=== PATIENT | male | born 1970 | race African-American/Black ===

== ENCOUNTER 2016-10-28 18:27 | Emergency (ER) ==
[2016-10-28 18:32] VITALS: BP 170/71; TEMP 98.9; BMI 25.7
[2016-10-28] MEDS ORDERED: DUONEB NEB ONE (18:52)
[2016-10-28] MEDS ORDERED: DECADRON 4 MG/ML SDV IM STA (18:55)
[2016-10-28] MEDS ORDERED: DUONEB NEB STA (18:55)
--- NOTE | 2016-10-28 19:31 | ED.PDOC ---
[id number] Complaint: im wheezing--i have asthma and its acting up Time Seen by Physician: 19:30 Mode of Arrival: Walk-In Information Source: Patient, Family Exam Limitations: No limitations Primary Care Provider: BRENDA AYALA Nursing and Triage Documentation Reviewed and Agree: Yes Respiratory Complaint Exam - Asthma Complaint/Exam Onset/Duration: 2 days Symptoms Are: Still present Timing: Intermittent Initial Severity: Mild Current Severity: Mild Character: Reports: Wheezing, Non-productive cough Aggravating: Reports: None Alleviating: Reports: Inhalers, Nebulizers Associated Signs and Symptoms: Reports: SOA. Denies: Fever, Chest pain, Edema, Calf pain, URI, Sinus infection, Rapid breathing, Labored breathing Related History: Reports: Similar episode Related Surgical History: Reports: None Status Asthmaticus Risk Factors: Reports: None Current Asthma Medication Usage: Yes Recent Antibiotics: No Respiratory Distress: None Accessory Muscle Use: No Retractions: Not Present Diminished Breath Sounds: No Prolonged Expiratory Phase: Yes Unable to Speak Full Sentences: Yes Fatigue Present: No Differential Diagnoses: Acute Asthma Review of Systems - Review Of Systems Constitutional: Reports: No symptoms Eyes: Reports: No symptoms Ears, Nose, Mouth, Throat: Reports: No symptoms Respiratory: Reports: Cough, Wheezing Cardiac: Reports: No symptoms GI: Reports: No symptoms : Reports: No symptoms Musculoskeletal: Reports: No symptoms Skin: Reports: No symptoms Neurological: Reports: No symptoms Endocrine: Reports: No symptoms Hematologic/Lymphatic: Reports: No symptoms All Other Systems: Reviewed and Negative Past Medical History - Past Medical History Previously Healthy: Yes Endocrine: Reports: None Cardiovascular: Reports: None Respiratory: Reports: Asthma Hematological: Reports: None Gastrointestinal: Reports: None Genitourinary: Reports: None Neuro/Psych: Reports: None, Other (on adderrall) Musculoskeletal: Reports: Unknown Cancer: Reports: None Other Pertinent Past Medical History: ASTHMA FLARE - Surgical History General Surgical History: Reports: Orthopedic (KNEE) - Family History Family History: Reports: Unknown - Social History Smoking Status: Never smoker Hx Substance Use: No Alcohol Screening: None Lives: With family - Immunizations Tetanus Shot up to Date: Yes Physical Exam - Physical Exam Appearance: Well-appearing, No pain distress, Well-nourished Eyes: NONA, EOMI, Conjunctiva clear ENT: Ears normal Neck: Supple Respiratory: Wheezes Cardiovascular: RRR, Pulses normal, No rub, No murmur GI/: Soft, Nontender, No masses, Bowel sounds normal, No Organomegaly Musculoskeletal: Normal strength, ROM intact, No edema, No calf tenderness Skin: Warm, Dry, Normal color Neurological: Sensation intact, Motor intact, Reflexes intact, Cranial nerves intact, Alert, Oriented Psychiatric: Affect appropriate, Mood appropriate Interpretation - Radiology Interpretation Radiology Interpretation By: Radiologist Radiology Results: Positive Exam Interpreted: CXR ("noted perihilar mass"? lymph node) Re-Evaluation - Re-Evaluation Time of Re-Evaluation: 19:32 Status: Improved Vital Signs Stable: Yes Pain Level: 0 Appearance: NAD Lungs: Clear Skin: Warm and Dry Neuro: Alert and Oriented X3 CV: RRR Critical Care Note - Critical Care Note Total Time (mins): 0 Course - Course Orders, Labs, Meds: Orders Category Date Time Status NEBULIZER TREATMENT Stat CARDIO 10/28/16 18:56 Completed Dexamethasone 4 mg/ml Inj [Decadron 4 mg/ml Sdv] MEDS 10/28/16 18:55 Discontinued 8 mg IM ONCE STA Ipratropium/Albuterol Neb [Duoneb] MEDS 10/28/16 18:52 Discontinued 1 vial NEB .STK-MED ONE Ipratropium/Albuterol Neb [Duoneb] MEDS 10/28/16 18:55 Discontinued 1 vial NEB ONCE STA CXR [CHEST, 2 VIEWS PA & LAT] Stat RADS 10/28/16 18:56 Completed Medications Discontinued Medications Generic Name Dose Route Start Last Admin Trade Name Freq PRN Reason Stop Dose Admin Albuterol/Ipratropium 1 vial 10/28/16 18:55 10/28/16 19:11 Duoneb NEB 10/28/16 18:56 Not Given ONCE STA Dexamethasone Sodium Phosphate 8 mg 10/28/16 18:55 10/28/16 19:03 Decadron 4 Mg/Ml Sdv IM 10/28/16 18:56 8 mg ONCE STA Administration Vital Signs: Temp Pulse Resp BP Pulse Ox 10/28/16 18:28 98.9 F 64 22 170/71 H 96 Departure - Departure Time of Disposition: 19:32 Disposition: HOME SELF-CARE Discharge Problem: Wheezing Instructions: Asthma (ED) Condition: Good Pt referred to PMD for follow-up: Yes Additional Instructions: continue inhalers and prednisone 30mg x 2 days then 20mg x 2 days then 10mg x 2 days--[facility]/u [facility] with cxr results Allergies/Adverse Reactions: Allergies No Known Allergies Allergy (Verified 10/28/16 18:35) Home Medications: Ambulatory Orders Montelukast Sodium [Singulair] 10 mg PO DAILY 11/01/13 Tiotropium [place] [Spiriva] 18 mcg IH DAILY 11/01/13 Albuterol Sulfate [Ventolin Hfa] 8 gm IH 2-4XD #1 hfa.aer.ad 03/06/16 Disposition Discussed With: Patient
--- NOTE | 2016-10-29 08:17 | DI ---
EXAM: Chest two view, frontal and lateral views. HISTORY: Cough. COMPARISON: 07/20/2015. FINDINGS: The heart size is normal. There is no pulmonary vascular congestion. The lungs are allan r. No pleural effusion or pneumothorax is seen. No acute osseous abnormality identified. Since prior study, there has been no significant interval change. IMPRESSION: No acute cardiopulmonary process.
== END 2016-10-28 19:38 | disposition home or self-care (01) ==
LOC: ED 18:27
DX: R06.2 Wheezing (principal); J45.909 Unspecified asthma, uncomplicated
CPT/HCPCS: 94640; 96372; 99282

== ENCOUNTER 2016-11-17 08:43 | Outpatient (CLI) ==
[2016-11-17 09:17] LABS: BASOPHILS % (AUTO) 0.5 % (0.0-3.0); EOSINOPHILS # (AUTO) 0.2 K/ul (0.0-0.7); EOSINOPHILS % (AUTO) 4.1 % (0.0-7.0); HEMATOCRIT 37.6 % (42.0-52.0); HEMOGLOBIN 12.9 g/dl (14.0-18.0); IMMATURE GRANULOCYTE % (AUTO) 0.2 % (0.0-5.0); LYMPHOCYTES # (AUTO) 1.6 K/uL (0.60-3.4); LYMPHOCYTES % (AUTO) 37.7 (10.0-50.0); MEAN CORPUSCULAR HEMOGLOBIN 30.5 pg (27.0-31.0); MEAN CORPUSCULAR HGB CONC 34.3 (31.8-35.4); MEAN CORPUSCULAR VOLUME 88.9 fl (80.0-94.0); MONOCYTES # (AUTO) 0.5 K/uL (0.4-2.0); MONOCYTES % (AUTO) 10.7 (0-10); NEUTROPHILS % (AUTO) 46.8; PLATELET COUNT 234 10^3/uL (140-440); RED BLOOD COUNT 4.23 10^6/ul (4.70-6.10); WHITE BLOOD COUNT 4.19 K/ul (4.2-10.2)
[2016-11-17 09:22] LABS: ADD URINE MICROSCOPIC NO; BILIRUBIN,URINE Negative (NEGATIVE); KETONES,URINE Negative (NEGATIVE); LEUKOCYTE ESTERASE ,URINE Negative (NEGATIVE); NITRITE,URINE Negative (NEGATIVE); PH,URINE 6.5 (5-9); PROTEIN,URINE Negative (NEGATIVE); URINE, BLOOD Negative (NEGATIVE)
[2016-11-17 09:58] LABS: ALBUMIN 3.5 g/dL (3.4-5.0); ALBUMIN/GLOBULIN RATIO 0.97; BILIRUBIN,TOTAL 0.68 mg/dL (0.00-1.20); BUN/CREATININE RATIO 18.18; CREATININE 1.1 mg/dL (0.60-1.10); TOTAL PROTEIN 7.1 g/dL (6.4-8.2)
== END 2016-11-17 08:44 | disposition home or self-care (01) ==
LOC: LAB 08:43
PROVIDERS: ATTEND Nurse Practitioner Family
DX: Z00.00 Encounter for general adult medical examination without abnormal findings (principal); R35.0 Frequency of micturition
CPT/HCPCS: 36415; 80053; 80061; 81001; 84443; 85025

== ENCOUNTER 2017-01-03 17:10 | Emergency (ER) ==
[2017-01-03 17:14] VITALS: BP 150/85; TEMP 97.2; BMI 26.4
[2017-01-03] MEDS ORDERED: DUONEB NEB STA (17:19)
[2017-01-03] MEDS ORDERED: SOLU-MEDROL 125 MG IVP STA (17:25)
--- NOTE | 2017-01-03 17:28 | ED.PDOC ---
General ED Provider: Dr. NEISHA ABRAHAM Chief Complaint: Shortness of Air Stated Complaint: started with wheezing and shortness of air since noon, ran out of all the medications. Time Seen by Physician: 17:26 Mode of Arrival: Walk-In Information Source: Patient Primary Care Provider: BRENDA AYALA Nursing and Triage Documentation Reviewed and Agree: Yes Respiratory Complaint Exam - Asthma Complaint/Exam Symptoms Are: Still present Timing: Constant Initial Severity: Moderate Current Severity: Moderate Character: Reports: Wheezing, Productive cough Aggravating: Reports: None Alleviating: Reports: None Associated Signs and Symptoms: Reports: SOA, URI, Rapid breathing. Denies: Fever, Chest pain, Edema, Calf pain, Sinus infection, Labored breathing Related History: Reports: Similar episode Related Surgical History: Reports: None Status Asthmaticus Risk Factors: Reports: None Current Asthma Medication Usage: No Recent Antibiotics: No Respiratory Distress: Mild Accessory Muscle Use: No Retractions: Not Present Diminished Breath Sounds: No Prolonged Expiratory Phase: Yes Unable to Speak Full Sentences: Yes Differential Diagnoses: Acute Asthma, Pneumonia Review of Systems - Review Of Systems Constitutional: Reports: Malaise, Weakness Eyes: Reports: No symptoms Ears, Nose, Mouth, Throat: Reports: No symptoms Respiratory: Reports: Cough, Short of air Cardiac: Reports: No symptoms GI: Reports: No symptoms : Reports: No symptoms Musculoskeletal: Reports: No symptoms Skin: Reports: No symptoms Neurological: Reports: No symptoms Endocrine: Reports: No symptoms Hematologic/Lymphatic: Reports: No symptoms All Other Systems: Reviewed and Negative Past Medical History - Past Medical History Previously Healthy: Yes Endocrine: Reports: None Cardiovascular: Reports: None Respiratory: Reports: Asthma Hematological: Reports: None Gastrointestinal: Reports: None Genitourinary: Reports: None Neuro/Psych: Reports: None, Other (on adderrall) Musculoskeletal: Reports: Unknown Cancer: Reports: None Other Pertinent Past Medical History: ASTHMA FLARE - Surgical History General Surgical History: Reports: Orthopedic (KNEE) - Family History Family History: Reports: Unknown - Social History Smoking Status: Never smoker Hx Substance Use: No Alcohol Screening: None Physical Exam - Physical Exam Appearance: Ill-appearing Ill-appearing: Mild Eyes: NONA, EOMI, Conjunctiva clear ENT: Ears normal, Nose normal, Oropharynx normal Respiratory: Crackles, Wheezes Cardiovascular: RRR, Pulses normal, No rub, No murmur GI/: Soft, Nontender, No masses, Bowel sounds normal, No Organomegaly Musculoskeletal: Normal strength, ROM intact, No edema, No calf tenderness Skin: Warm, Dry, Normal color Neurological: Sensation intact, Motor intact, Reflexes intact, Cranial nerves intact, Alert, Oriented Psychiatric: Affect appropriate, Mood appropriate Critical Care Note - Critical Care Note Total Time (mins): 0 Course - Course Orders, Labs, Meds: Orders Category Date Time Status NEBULIZER TREATMENT Stat CARDIO 01/03/17 17:19 Ordered Ipratropium/Albuterol Neb [Duoneb] MEDS 01/03/17 17:19 Discontinued 1 vial NEB ONCE STA Methylprednisolone Sod Succ/Pf [Solu-Medrol 125 mg] MEDS 01/03/17 17:25 Discontinued 125 mg IVP ONCE STA CXR [CHEST, 1V AP ONLY] Stat RADS 01/03/17 17:26 Ordered Medications Discontinued Medications Generic Name Dose Route Start Last Admin Trade Name Freq PRN Reason Stop Dose Admin Albuterol/Ipratropium 1 vial 01/03/17 17:19 Duoneb NEB 01/03/17 17:20 ONCE STA Methylprednisolone Sodium Succinate 125 mg 01/03/17 17:25 01/03/17 17:32 Solu-Medrol 125 Mg IVP 01/03/17 17:26 125 mg ONCE STA Administration Vital Signs: Temp Pulse Resp BP Pulse Ox 01/03/17 17:11 97.2 F L 70 32 H 150/85 H 99 Departure - Departure Time of Disposition: 17:38 Disposition: HOME SELF-CARE Discharge Problem: Asthma with acute exacerbation Qualifiers: Asthma severity: mild intermittent Qualifier Code: (J45.21) Mild intermittent asthma with (acute) exacerbation Instructions: Reactive Airways Disease (ED) Condition: Stable Pt referred to PMD for follow-up: Yes Additional Instructions: avoid smoke and allergens f/u at [facility] Prescriptions: Cephalexin [Keflex] 500 mg PO Q12HR #20 capsule Albuterol Sulfate [Ventolin Hfa] 18 gm IH TID #1 hfa.aer.ad Methylprednisolone [Medrol Dosepak] 4 mg PO DIRECTED #1 pkg Allergies/Adverse Reactions: Allergies No Known Allergies Allergy (Verified 01/03/17 17:17) Home Medications: Ambulatory Orders Montelukast Sodium [Singulair] 10 mg PO DAILY 11/01/13 Tiotropium [place] [Spiriva] 18 mcg IH DAILY 11/01/13 Albuterol Sulfate [Ventolin Hfa] 8 gm IH 2-4XD #1 hfa.aer.ad 03/06/16 Dextroamphetamine/Amphetamine [Adderall 30 Mg Tablet] 15 mg PO BID #30 Albuterol Sulfate [Ventolin Hfa] 18 gm IH TID #1 hfa.aer.ad 01/03/17 Cephalexin [Keflex] 500 mg PO Q12HR #20 capsule 01/03/17 Methylprednisolone [Medrol Dosepak] 4 mg PO DIRECTED #1 pkg 01/03/17 Disposition Discussed With: Patient, Family
--- NOTE | 2017-01-04 07:06 | DI ---
EXAM: Chest one view, frontal view only. HISTORY: Shortness of air. COMPARISON: 10/28/2016. FINDINGS: The heart size is normal. There is no pulmonary vascular congestion. The lungs are allan r. No pleural effusion or pneumothorax is seen. No acute osseous abnormality is identified. Since the prior study, there has been no significant interval change. IMPRESSION: No acute cardiopulmonary process.
== END 2017-01-03 18:05 | disposition home or self-care (01) ==
LOC: ED 17:10
DX: J45.21 Mild intermittent asthma with (acute) exacerbation (principal)
CPT/HCPCS: 94640; 96374; 99283

== ENCOUNTER 2017-04-22 11:28 | Emergency (ER) ==
[2017-04-22 11:28] VITALS: BMI 26.4
[2017-04-22 11:33] VITALS: BP 172/94; TEMP 97.1
--- NOTE | 2017-04-22 11:43 | ED.PDOC ---
General ED Provider: Dr. GINO TRAORE Chief Complaint: Back Pain Stated Complaint: Back pain; doing work up and down ladder No falls or injury Time Seen by Physician: 11:38 Mode of Arrival: Walk-In Information Source: Patient Exam Limitations: No limitations Primary Care Provider: BRENDA AYALA Nursing and Triage Documentation Reviewed and Agree: Yes Review of Systems - Review Of Systems Constitutional: Reports: No symptoms Musculoskeletal: Reports: Back pain, Other (Bilateral radiation to thighs) Neurological: Reports: No symptoms All Other Systems: Reviewed and Negative Past Medical History - Past Medical History Previously Healthy: Yes Endocrine: Reports: None Cardiovascular: Reports: None Respiratory: Reports: Asthma Hematological: Reports: None Gastrointestinal: Reports: None Genitourinary: Reports: None Neuro/Psych: Reports: None, Other (on adderrall) Musculoskeletal: Reports: Unknown Cancer: Reports: None Other Pertinent Past Medical History: ASTHMA FLARE - Surgical History General Surgical History: Reports: Orthopedic (KNEE) - Family History Family History: Reports: Unknown - Social History Smoking Status: Never smoker Hx Substance Use: No Alcohol Screening: None Physical Exam - Physical Exam Appearance: Well-appearing Pain Distress: Mild (Goes from face down on exam table to erect weight bearing without difficulty) Eyes: NONA, EOMI Respiratory: Airway patent, Respirations nonlabored Musculoskeletal: ROM intact (SLR R unremarkable; SLR L gives pain at 80 degrees) Neurological: Sensation intact, Motor intact, Reflexes intact, Alert, Oriented Psychiatric: Affect appropriate, Mood appropriate Critical Care Note - Critical Care Note Total Time (mins): 10 Course - Course Vital Signs: Temp Pulse Resp BP Pulse Ox 04/22/17 11:29 97.1 F L 72 16 172/94 H 96 Departure - Departure Time of Disposition: 11:43 Disposition: HOME SELF-CARE Discharge Problem: Back pain of lumbar region with sciatica Instructions: Back Pain (ED), Chronic Back Pain (ED) Condition: Good Pt referred to PMD for follow-up: Yes (Call for appointment) Additional Instructions: Rest, use pain medication - may use with your Flexeril Heating pad may help. 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 Follow up with primary care; call for appointment. Prescriptions: Hydrocodone Bit/Acetaminophen [[place] 7.5-325] 1 tab PO Q6HR PRN #12 tablet PRN Reason: pain Allergies/Adverse Reactions: Allergies No Known Allergies Allergy (Verified 01/03/17 17:17) Home Medications: Ambulatory Orders Montelukast Sodium [Singulair] 10 mg PO DAILY 11/01/13 Tiotropium [place] [Spiriva] 18 mcg IH DAILY 11/01/13 Albuterol Sulfate [Ventolin Hfa] 8 gm IH 2-4XD #1 hfa.aer.ad 03/06/16 Albuterol Sulfate [Ventolin Hfa] 18 gm IH TID #1 hfa.aer.ad 01/03/17 Hydrocodone Bit/Acetaminophen [[place] 7.5-325] 1 tab PO Q6HR PRN #12 tablet 04/22 Disposition Discussed With: Patient
== END 2017-04-22 11:53 | disposition home or self-care (01) ==
LOC: ED 11:28
DX: M54.40 Lumbago with sciatica, unspecified side (principal)
CPT/HCPCS: 99283

== ENCOUNTER 2017-05-09 17:30 | Emergency (ER) ==
[2017-05-09 17:34] VITALS: BP 147/81; TEMP 97.5; BMI 25.8
[2017-05-09] MEDS ORDERED: TORADOL IM STA (17:48)
[2017-05-09] MEDS ORDERED: AUGMENTIN 500-125 MG TAB PO STA (17:48)
--- NOTE | 2017-05-09 17:51 | ED.PDOC ---
General ED Provider: Dr. NEISHA ABRAHAM Chief Complaint: Tooth Problem Stated Complaint: Rt upper tooth hurting for 4 weeks, but now the face is swollen on that side, Time Seen by Physician: 17:49 Mode of Arrival: Walk-In Information Source: Patient Primary Care Provider: BRENDA AYALA Nursing and Triage Documentation Reviewed and Agree: Yes EENT Complaint Exam - Dental/Oral Complaint/Exam Mechanism of Injury: No known trauma Symptoms Are: Still present Timing: Constant Initial Severity: Mild Current Severity: Mild Character: Reports: Dull, Aching Aggravating: Reports: Chewing Alleviating: Reports: None Associated Signs and Symptoms: Reports: Swelling, Foul odor, Foul taste in mouth Related History: Reports: Similar episode Cardiac Risk Factors: Reports: None Dental/Oral Surgical History: Reports: None Tooth Findings: Present: Percussion tenderness Cervical Lymphadenopathy Present: No Facial Swelling Present: Yes Teeth Picture: 1 - tender, Differential Diagnoses: Dental Abcess, Dental Caries Review of Systems - Review Of Systems Constitutional: Reports: No symptoms Eyes: Reports: No symptoms Ears, Nose, Mouth, Throat: Reports: Mouth swelling Respiratory: Reports: No symptoms Cardiac: Reports: No symptoms GI: Reports: No symptoms : Reports: No symptoms Musculoskeletal: Reports: No symptoms Skin: Reports: No symptoms Neurological: Reports: No symptoms Endocrine: Reports: No symptoms Hematologic/Lymphatic: Reports: No symptoms All Other Systems: Reviewed and Negative Past Medical History - Past Medical History Previously Healthy: Yes Endocrine: Reports: None Cardiovascular: Reports: None Respiratory: Reports: Asthma Hematological: Reports: None Gastrointestinal: Reports: None Genitourinary: Reports: None Neuro/Psych: Reports: None, Other (on adderrall) Musculoskeletal: Reports: Unknown Cancer: Reports: None Other Pertinent Past Medical History: ASTHMA FLARE - Surgical History General Surgical History: Reports: Orthopedic (KNEE) - Family History Family History: Reports: Unknown - Social History Smoking Status: Never smoker Hx Substance Use: No Alcohol Screening: None - Immunizations Tetanus Shot up to Date: Yes Physical Exam - Physical Exam Appearance: Well-appearing, No pain distress, Well-nourished Eyes: NONA, EOMI, Conjunctiva clear ENT: Ears normal, Nose normal, Oropharynx normal Respiratory: Airway patent, Breath sounds clear, Breath sounds equal, Respirations nonlabored Cardiovascular: RRR, Pulses normal, No rub, No murmur GI/: Soft, Nontender, No masses, Bowel sounds normal, No Organomegaly Musculoskeletal: Normal strength, ROM intact, No edema, No calf tenderness Skin: Warm, Dry, Normal color Neurological: Sensation intact, Motor intact, Reflexes intact, Cranial nerves intact, Alert, Oriented Psychiatric: Affect appropriate, Mood appropriate Critical Care Note - Critical Care Note Total Time (mins): 0 Course - Course Orders, Labs, Meds: Orders Category Date Time Status Amoxicillin/Potassium Clav [Augmentin 500-125 mg Tab] MEDS 05/09/17 17:48 Stat 1 tab PO ONCE STA Ketorolac Tromethamine [Toradol] MEDS 05/09/17 17:48 Stat 60 mg IM ONCE STA Vital Signs: Temp Pulse Resp BP Pulse Ox 05/09/17 17:30 97.5 F L 80 20 147/81 H 96 Departure - Departure Time of Disposition: 17:52 Disposition: HOME SELF-CARE Discharge Problem: Toothache Instructions: Dental Abscess (ED) Condition: Stable Pt referred to PMD for follow-up: Yes (dentist) Additional Instructions: Take meds with food needs f/u with dentist Prescriptions: Amoxicillin/Potassium Clav [Augmentin 500-125 mg Tab] 1 tab PO Q12HR #20 tablet Hydrocodone/Acetaminophen [[place] 5-325 Tablet] 1 tab PO TID PRN #10 tablet PRN Reason: PAIN Allergies/Adverse Reactions: Allergies No Known Allergies Allergy (Verified 05/09/17 17:35) Home Medications: Ambulatory Orders Montelukast Sodium [Singulair] 10 mg PO DAILY 11/01/13 Tiotropium [place] [Spiriva] 18 mcg IH DAILY 11/01/13 Amoxicillin/Potassium Clav [Augmentin 500-125 mg Tab] 1 tab PO Q12HR #20 tablet 05/09/17 Hydrocodone/Acetaminophen [[place] 5-325 Tablet] 1 tab PO TID PRN #10 tablet 05/09 Disposition Discussed With: Patient
== END 2017-05-09 18:06 | disposition home or self-care (01) ==
LOC: ED 17:30
DX: K04.7 Periapical abscess without sinus (principal)
CPT/HCPCS: 96372; 99282

== ENCOUNTER 2017-05-27 09:39 | Emergency (ER) ==
[2017-05-27 09:43] VITALS: BP 153/94; TEMP 97.6; BMI 27.8
[2017-05-27] MEDS ORDERED: BENADRYL IM STA (09:57)
[2017-05-27] MEDS ORDERED: DECADRON 4 MG/ML SDV IM STA (09:57)
--- NOTE | 2017-05-27 09:57 | ED.PDOC ---
General ED Provider: Dr. NELSON PROCTOR Chief Complaint: Rash Stated Complaint: rash chest , face arms and legs Time Seen by Physician: 10:00 (rash after digging out some plants may be poison ludivina was among them) Mode of Arrival: Walk-In Information Source: Patient Exam Limitations: No limitations Primary Care Provider: NEISHA ABRAHAM[facility] Nursing and Triage Documentation Reviewed and Agree: Yes ([place] exposure of plant nature ) Skin Complaint Exam - Skin Rash/Itching Complaint/Exam Onset/Duration: 1 day Symptoms Are: Still present Initial Severity: Moderate Current Severity: Moderate Potential Exposures: Reports: Plants Aggravating: Reports: None Alleviating: Reports: None Associated Signs and Symptoms: Denies: Difficulty breathing, Fever, Chills Related History: Similar episode Skin Findings: Present: Maculae, Papules Differential Diagnoses: Allergic Reaction, Poison [place] Review of Systems - Review Of Systems Constitutional: Reports: No symptoms Eyes: Reports: No symptoms Ears, Nose, Mouth, Throat: Reports: No symptoms Respiratory: Reports: No symptoms Cardiac: Reports: No symptoms GI: Reports: No symptoms : Reports: No symptoms Musculoskeletal: Reports: No symptoms Skin: Reports: Rash Neurological: Reports: No symptoms Endocrine: Reports: No symptoms Hematologic/Lymphatic: Reports: No symptoms All Other Systems: Reviewed and Negative Past Medical History - Past Medical History Previously Healthy: Yes Endocrine: Reports: None Cardiovascular: Reports: None Respiratory: Reports: Asthma Hematological: Reports: None Gastrointestinal: Reports: None Genitourinary: Reports: None Neuro/Psych: Reports: None, Other (on adderrall) Musculoskeletal: Reports: Unknown Cancer: Reports: None Other Pertinent Past Medical History: ASTHMA FLARE - Surgical History General Surgical History: Reports: Orthopedic (KNEE) - Family History Family History: Reports: Unknown - Social History Smoking Status: Never smoker Hx Substance Use: No Alcohol Screening: None Physical Exam - Physical Exam Appearance: Well-appearing, No pain distress, Well-nourished Eyes: NONA, EOMI, Conjunctiva clear ENT: Ears normal, Nose normal, Oropharynx normal Respiratory: Airway patent, Breath sounds clear, Breath sounds equal, Respirations nonlabored Cardiovascular: RRR, Pulses normal, No rub, No murmur GI/: Soft, Nontender, No masses, Bowel sounds normal, No Organomegaly Musculoskeletal: Normal strength, ROM intact, No edema, No calf tenderness Skin: Warm, Dry (papules, vesidles ) Neurological: Sensation intact, Motor intact, Reflexes intact, Cranial nerves intact, Alert, Oriented Psychiatric: Affect appropriate, Mood appropriate Critical Care Note - Critical Care Note Total Time (mins): 0 Course - Course Vital Signs: Temp Pulse Resp BP Pulse Ox 05/27/17 09:40 97.6 F 64 16 153/94 H 97 Departure - Departure Time of Disposition: 09:56 Disposition: HOME SELF-CARE Discharge Problem: Pruritic rash, Poison ludivina dermatitis Instructions: Poison [place] (ED) Condition: Good Pt referred to PMD for follow-up: Yes Allergies/Adverse Reactions: Allergies No Known Allergies Allergy (Verified 05/27/17 09:43) Home Medications: Ambulatory Orders Montelukast Sodium [Singulair] 10 mg PO DAILY 11/01/13 Tiotropium [place] [Spiriva] 18 mcg IH DAILY 11/01/13 Hydrocodone/Acetaminophen [[place] 5-325 Tablet] 1 tab PO TID PRN #10 tablet 05/09
== END 2017-05-27 10:30 | disposition home or self-care (01) ==
LOC: ED 09:39
DX: L23.7 Allergic contact dermatitis due to plants, except food (principal)
CPT/HCPCS: 96372; 99282

== ENCOUNTER 2017-07-07 11:32 | Emergency (ER) ==
[2017-07-07 11:35] VITALS: TEMP 96.8; BMI 22.1
[2017-07-07 12:36] LABS: BASOPHILS % (AUTO) 0.4 % (0.0-3.0); EOSINOPHILS # (AUTO) 0.1 K/ul (0.0-0.7); EOSINOPHILS % (AUTO) 2.6 % (0.0-7.0); HEMATOCRIT 40.9 % (42.0-52.0); HEMOGLOBIN 14.3 g/dl (14.0-18.0); LYMPHOCYTES # (AUTO) 1.4 K/uL (0.60-3.4); MEAN CORPUSCULAR HEMOGLOBIN 30.8 pg (27.0-31.0); MEAN CORPUSCULAR VOLUME 88.1 fl (80.0-94.0); MONOCYTES # (AUTO) 0.4 K/uL (0.4-2.0); MONOCYTES % (AUTO) 9.5 (0-10); NEUTROPHILS # (AUTO) 2.7 K/ul (2.0-6.9); NEUTROPHILS % (AUTO) 57.5; PLATELET COUNT 261 10^3/uL (140-440); RED BLOOD COUNT 4.64 10^6/ul (4.70-6.10); WHITE BLOOD COUNT 4.63 K/ul (4.2-10.2)
--- NOTE | 2017-07-07 12:41 | CT ---
EXAM: CT BRAIN HISTORY: Dizziness TECHNIQUE: CT brain without intravenous contrast. 5-mm axial sections with Reformations. COMPARISON: 09/20/2013 FINDINGS: Brain is unremarkable without distinct evidence of hemorrhage or large vessel distribution recent i schemic infarction. There is no suggestion of acute hydrocephalus or subdural fluid collection. No mass or mass effect. There is mild deformity of the posterior medial right orbital wall which may be related to prior inju ry. This is stable. Cranium is within normal limits. Mastoid air cells are aerated. The visualized paranasal sinuses are clear. IMPRESSION: No acute intracranial process.
--- NOTE | 2017-07-07 12:52 | ED.PDOC ---
General ED Provider: Dr. NELSON PROCTOR Chief Complaint: Hypertension Stated Complaint: DIZZY Time Seen by Physician: 11:34 Mode of Arrival: Walk-In Information Source: Patient Exam Limitations: No limitations [facility] Documentation Reviewed and Agree: Yes (NONETOXIC PRESENTATION ) Neurological Complaint Exam - Headache Complaint/Exam Duration: 1 DAY Symptoms Are: Still present Timing: Intermittent Episodes Lasting: Hours Worst Headache Ever: No Initial Severity: Mild Current Severity: Mild Aggravating: Reports: None Alleviating: Reports: None Associated Signs and Symptoms: Reports: Dizziness. Denies: Seizure, Nausea, Vomiting, Sinus pressure, Fever, Neck pain, Neck stiffness, Decreased LOC, Visual changes Related Surgical History: Reports: None SAH Risk Factors: Reports: None Meningitis Risk Factors: Reports: None SDH Risk Factors: Reports: None Temporal Arteritis Risk Factors: Reports: None Normal Head CT Within Last 12 Months: Yes Fundoscopic Exam: Present: Normal Findings Papilledema Present: No Temporal Artery Tenderness: Present: None Sinus Tenderness: Present: None TMJ Tenderness: Present: None Glascow Coma Scale (see protocol): 15 Meningeal Signs Positive: No Focal Weakness: Present: None Review of Systems - Review Of Systems Constitutional: Reports: No symptoms Eyes: Reports: No symptoms Ears, Nose, Mouth, Throat: Reports: No symptoms Respiratory: Reports: No symptoms Cardiac: Reports: No symptoms GI: Reports: No symptoms : Reports: No symptoms Musculoskeletal: Reports: No symptoms Skin: Reports: No symptoms Neurological: Reports: No symptoms, Headache, Other (DIZZY ) Endocrine: Reports: No symptoms Hematologic/Lymphatic: Reports: No symptoms All Other Systems: Reviewed and Negative Past Medical History - Past Medical History Previously Healthy: Yes Endocrine: Reports: None Cardiovascular: Reports: None Respiratory: Reports: Asthma Hematological: Reports: None Gastrointestinal: Reports: None Genitourinary: Reports: None Neuro/Psych: Reports: None, Other (on adderrall) Musculoskeletal: Reports: Unknown Cancer: Reports: None Other Pertinent Past Medical History: ASTHMA FLARE - Surgical History General Surgical History: Reports: Orthopedic (KNEE) - Family History Family History: Reports: Unknown - Social History Smoking Status: Never smoker Hx Substance Use: No Alcohol Screening: None Physical Exam - Physical Exam Appearance: Well-appearing, No pain distress, Well-nourished Eyes: NONA, EOMI, Conjunctiva clear ENT: Ears normal, Nose normal, Oropharynx normal Respiratory: Airway patent, Breath sounds clear, Breath sounds equal, Respirations nonlabored Cardiovascular: RRR, Pulses normal, No rub, No murmur GI/: Soft, Nontender, No masses, Bowel sounds normal, No Organomegaly Musculoskeletal: Normal strength, ROM intact, No edema, No calf tenderness Skin: Warm, Dry, Normal color Neurological: Sensation intact, Motor intact, Reflexes intact, Cranial nerves intact, Alert, Oriented Psychiatric: Affect appropriate, Mood appropriate Critical Care Note - Critical Care Note Total Time (mins): 0 Course - Course Hematology/Chemistry: 07/07/17 12:25 Orders, Labs, Meds: Lab Review 07/07/17 12:25 WBC 4.63 RBC 4.64 L Hgb 14.3 Hct 40.9 L MCV 88.1 MCH 30.8 MCHC 35.0 RDW Coeff of [place] 12.4 Plt Count 261 Immature Gran % (Auto) 0.0 Neut % (Auto) 57.5 Lymph % (Auto) 30.0 [place] % (Auto) 9.5 Eos % (Auto) 2.6 Baso % (Auto) 0.4 Immature Gran # (Auto) 0.0 Neut # 2.7 Lymph # 1.4 [place] # 0.4 Eos # 0.1 Baso # 0.0 Orders Category Date Time Status EKG-(ED ONLY) Stat CARDIO 07/07/17 12:06 Completed CBC W/ AUTO DIFF Stat LAB 07/07/17 12:25 Completed COMPREHENSIVE METABOLIC PANEL Stat LAB 07/07/17 12:25 Received FREE T4 (FREE THYROXINE) Stat LAB 07/07/17 12:25 Received THYROID STIMULATING HORMONE Stat LAB 07/07/17 12:[address] HEAD W/O CONTRAST Stat RADS 07/07/17 12:06 Completed Vital Signs: Temp Pulse Resp BP Pulse Ox 07/07/17 11:32 96.8 F L 102 H 20 179/106 H 94 L Departure - Departure Time of Disposition: 14:00 Disposition: HOME SELF-CARE Discharge Problem: Hypertension Instructions: Hypertension (ED) Condition: Good Pt referred to PMD for follow-up: Yes Additional Instructions: Please call your Family Physician as soon as possible to schedule a follow-up appointment. Allergies/Adverse Reactions: Allergies No Known Allergies Allergy (Verified 09/27/17 11:35) Home Medications: Ambulatory Orders Montelukast Sodium [Singulair] 10 mg PO DAILY 11/01/13 Tiotropium [place] [Spiriva] 18 mcg IH DAILY 11/01/13 Disposition Discussed With: Patient
[2017-07-07] MEDS ORDERED: ZESTRIL PO STA (12:56)
[2017-07-07 13:15] LABS: ALBUMIN 3.8 g/dL (3.4-5.0); ALBUMIN/GLOBULIN RATIO 0.93; ANION GAP 12.9; BILIRUBIN,TOTAL 0.74 mg/dL (0.00-1.20); BUN/CREATININE RATIO 14.63; CALCIUM 9.5 mg/dL (8.2-10.2); CREATININE 1.23 mg/dL (0.60-1.10); POTASSIUM 3.9 mmol/L (3.5-5.1); TOTAL PROTEIN 7.9 g/dL (6.4-8.2)
[2017-07-07 13:32] VITALS: BP 169/100
== END 2017-07-07 13:30 | disposition home or self-care (01) ==
LOC: ED 11:32
DX: I10 Essential (primary) hypertension (principal); R42 Dizziness and giddiness
CPT/HCPCS: 36415; 80053; 84439; 84443; 85025; 93005; 93010; 99283